=== PATIENT | female | born 1950 ===

== ENCOUNTER 2022-12-13 15:52 | Outpatient (RCR) | payer MEDICARE | END 2022-12-14 | LOC: PT 15:52 | PROVIDERS: ATTEND Otolaryngology | DX: R42 Dizziness and giddiness (principal) ==

== ENCOUNTER 2022-12-20 16:00 | Outpatient (RCR) | payer MEDICARE | END 2023-01-11 | LOC: PT 16:00 | PROVIDERS: ATTEND Otolaryngology | DX: H81.10 Benign paroxysmal vertigo, unspecified ear (principal) ==